=== PATIENT | female | born 1945 | race Asian ===

== ENCOUNTER 2016-11-28 10:03 | Outpatient (CLI) | payer OTHER | END 2016-11-28 11:00 | disposition home or self-care (01) | LOC: SMA 10:03 | PROVIDERS: ATTEND Specialist | DX: Z12.31 Encounter for screening mammogram for malignant neoplasm of breast (principal) | CPT/HCPCS: G0202 ==

== ENCOUNTER 2017-12-02 09:45 | Outpatient (CLI) | payer OTHER | END 2017-12-02 20:14 | disposition home or self-care (01) | LOC: SMA 09:45 | PROVIDERS: ATTEND Family Medicine | DX: Z12.31 Encounter for screening mammogram for malignant neoplasm of breast (principal) | CPT/HCPCS: 77067 ==